=== PATIENT | female | born 1955 | race Caucasian/White ===

== ENCOUNTER 2024-06-27 16:14 | Emergency (ER) | payer MEDICARE ==
[2024-06-27 18:48] LABS: Bilirubin Neg (Negative); Blood, Urine Negative (Negative); Clarity Clear (Clear); Glucose, Urine (Dipstick) Normal (Negative); Ketone, Urine Negative (Negative); Leukocyte 25 (Negative); Nitrite Negative (Negative); Protein, Urine (Dipstick) 15 mg/dl (Neg-Trace); Specific Gravity, Urine 1.015 (1.005-1.030)
[2024-06-27 18:55] LABS: Amphetamine Not Detected (NotDetected); Barbiturates Screen Not Detected (NotDetected); Benzodiazepine Screen Detected (NotDetected); Cocaine Metabolite Screen Not Detected (NotDetected); Methadone Not Detected (NotDetected); Methamphetamine Not Detected (NotDetected); Opiate Screen Not Detected (NotDetected); Oxycodone Screen Not Detected (NotDetected); Phencyclidine (PCP) Not Detected (NotDetected); THC/Cannabinoid Screen Not Detected (NotDetected); Tricyclic Screen Not Detected (NotDetected)
[2024-06-27 18:57] LABS: Bacteria/HPF None Seen HPF (None Seen); CAUTI Indications for Culture Alt mental st,lethar; Mucous/LPF 1+ LPF (<2+); RBC/HPF 0-3 HPF (0-3); WBC/HPF 0-3 HPF (0-3)
[2024-06-27 18:58] LABS: Urine Culture Reflex No No
[2024-06-27 19:08] LABS: Hematocrit 34.8 % (34.9-44.5); Hemoglobin 11.6 g/dL (12.0-15.5); Mean Corpuscular HGB CONC 33.3 g/dL (32.0-36.0); Mean Corpuscular Hemoglobin 33.8 pg (27.0-33.0); Mean Corpuscular Volume 101.5 fL (81.6-98.3); Platelet Count 204 10x3/uL (150-450); RBC Distribution Width 15.4 % (11.5-14.5); Red Blood Cell (RBC) Count 3.43 10x6/uL (3.90-5.03); White Blood Cell (WBC) Count 6.6 10x3/uL (3.5-10.5)
[2024-06-27 19:27] LABS: ALT (SGPT) 16 U/L (8-55); AST (SGOT) 17 U/L (5-34); Albumin 4.5 g/dL (3.4-4.8); Alkaline Phosphatase 66 U/L (40-110); Anion Gap 17 mmol/L (10-20); BUN (Urea Nitrogen) 12 mg/dL (9.8-20.1); Bilirubin, Total 1.3 mg/dL (0.2-1.2); CK (CPK) 23 U/L (29-168); Calc. Creatinine Clearance 0 mL/min (70-130); Calcium 9.6 mg/dL (7.8-10.44); Carbon Dioxide 23 mmol/L (23-31); Chloride 106 mmol/L (98-107); Estimated GFR 61; Globulin 2.7 g/dL (2.4-3.5); Glucose 115 mg/dL (80-115); Potassium 4.1 mmol/L (3.5-5.1); Protein, Total 7.2 g/dL (5.8-8.1); Sodium 142 mmol/L (136-145)
[2024-06-27 19:31] LABS: Troponin I 0.016 ng/mL (< 0.028)
[2024-06-27 19:46] LABS: Acetaminophen Less than 10 mcg/mL (Less than 10); Alcohol Less than 10.0 mg/dL (Less than 10); Lipase 64 U/L (8-78); Salicylate Less than 8.0 mg/dL (Less than 8.0)
[2024-06-27 20:15] LABS: MDiff Complete? YES
[2024-06-27 20:17] LABS: Eosinophils 2 % (0-10); Lymphocytes 36 % (21-51); Monocytes 4 % (0-10); Neutrophil 56 % (42-75)
[2024-06-27 20:18] LABS: Large Platelets SLIGHT (None Seen); Ovalocytes SLIGHT = 2-5 cells (100X) (0-1/hpf); Schistocytes SLIGHT = 2-5 cells (100X) (0-1/hpf)
[2024-06-27 20:19] LABS: Macrocytosis SLIGHT = 6-15 cells (100X) (0-5/hpf)
[2024-06-27 20:20] LABS: Platelet Adequacy Comment Appears Adequate
== END 2024-06-27 20:34 | disposition home or self-care (01) ==
LOC: CSHERS 16:14
DX: R41.0 Disorientation, unspecified (principal)
CPT/HCPCS: 70450; 71045; 80053; 80306; 80307; 81001; 82140; 82550; 83690; 84443; 84484; 85025

== ENCOUNTER 2024-07-13 13:28 | Emergency (ER) | payer MEDICARE ==
[2024-07-13 14:18] LABS: Analyzer IN Cardio CS ER; Calcium, Ionized (venous) 1.12 mmol/L (1.16-1.32); Chloride (VBG) 103 mmol/L (98-106); Hematocrit-VBG 32 % (36.0-47.0); Potassium (VBG) 3.57 mmol/L (3.70-5.30); Puncture Site Other Site; RapidComm Collect By LAB; Sodium 141 mmol/L (133-146)
[2024-07-13 14:32] LABS: #Basophils 0.07 10x3/uL (0.0-0.2); #Eosinophils 0.09 10x3/uL (0.0-0.5); #Monocytes 0.23 10x3/uL (0.0-1.1); #Neutrophils 2.13 10x3/uL (1.5-8.4); %Basophils 1.5 % (0.0-2.0); %Lymphocytes 44.7 % (18.0-47.0); %Neutrophils 46.8 % (40.0-75.0); Hematocrit 30.8 % (34.9-44.5); Hemoglobin 9.7 g/dL (12.0-15.5); Mean Corpuscular HGB CONC 31.5 g/dL (32.0-36.0); Mean Corpuscular Hemoglobin 33.6 pg (27.0-33.0); Mean Corpuscular Volume 106.6 fL (81.6-98.3); Mean Platelet Volume 13.4 fL (7.4-10.4); Platelet Count 191 10x3/uL (150-450); RBC Distribution Width 14.9 % (11.5-14.5); Red Blood Cell (RBC) Count 2.89 10x6/uL (3.90-5.03); White Blood Cell (WBC) Count 4.6 10x3/uL (3.5-10.5)
[2024-07-13 14:47] LABS: ALT (SGPT) 13 U/L (8-55); AST (SGOT) 15 U/L (5-34); Albumin 3.3 g/dL (3.4-4.8); Alkaline Phosphatase 66 U/L (40-110); Anion Gap 13 mmol/L (10-20); BUN (Urea Nitrogen) 9 mg/dL (9.8-20.1); Bilirubin, Total 0.5 mg/dL (0.2-1.2); Calc. Creatinine Clearance 0 mL/min (70-130); Calcium 8.7 mg/dL (7.8-10.44); Carbon Dioxide 23 mmol/L (23-31); Chloride 106 mmol/L (98-107); Estimated GFR 73; Globulin 2.2 g/dL (2.4-3.5); Glucose 177 mg/dL (80-115); Magnesium 1.9 mg/dL (1.6-2.6); Potassium 3.8 mmol/L (3.5-5.1); Protein, Total 5.5 g/dL (5.8-8.1); Sodium 138 mmol/L (136-145)
[2024-07-13 14:50] LABS: Troponin I 0.023 ng/mL (< 0.028)
[2024-07-13 15:25] LABS: Large Platelets SLIGHT (None Seen)
[2024-07-13 15:26] LABS: Platelet Adequacy Comment Appears Adequate; RBC Morph Comment Within Normal Limits
[2024-07-13 15:54] LABS: Bilirubin Neg (Negative); Blood, Urine Negative (Negative); Clarity Clear (Clear); Glucose, Urine (Dipstick) 250 mg/dL (Negative); Ketone, Urine Negative (Negative); Leukocyte Negative (Negative); Nitrite Negative (Negative); Protein, Urine (Dipstick) Negative (Neg-Trace)
[2024-07-13 16:02] LABS: Bacteria/HPF 1+ HPF (None Seen); CAUTI Indications for Culture Alt mental st,lethar; Mucous/LPF 2+ LPF (<2+); RBC/HPF 0-3 HPF (0-3); Squamous Epithelial 0-3 HPF (0-3); WBC/HPF 0-3 HPF (0-3)
[2024-07-13 16:03] LABS: Urine Culture Reflex No No
[2024-07-13] MEDS ORDERED: Acetaminophen 325 MG TAB ONE (20:05)
== END 2024-07-13 21:29 | disposition short-term general hospital (02) ==
LOC: CSHERS 13:28
DX: R55 Syncope and collapse (principal); D64.9 Anemia, unspecified; E86.0 Dehydration; Z55.0 Illiteracy and low-level literacy
CPT/HCPCS: 71045; 80053; 81001; 82805; 83605; 83735; 84484; 85025; 93005; 96360

== ENCOUNTER 2024-10-21 13:59 | Emergency (ER) | payer MEDICARE ==
[2024-10-21 15:00] LABS: Platelet Count 153 10x3/uL (150-450)
[2024-10-21 15:01] LABS: #Eosinophils 0.13 10x3/uL (0.0-0.5); #Neutrophils 1.62 10x3/uL (1.5-8.4); %Basophils 2.8 % (0.0-2.0); %Eosinophils 3.7 % (0.0-6.0); %Lymphocytes 42.3 % (18.0-47.0); %Monocytes 5.6 % (0.0-10.0); %Neutrophils 45.6 % (40.0-75.0); Hematocrit 31.3 % (34.9-44.5); Hemoglobin 10.1 g/dL (12.0-15.5); Mean Corpuscular HGB CONC 32.3 g/dL (32.0-36.0); Mean Corpuscular Hemoglobin 33.2 pg (27.0-33.0); RBC Distribution Width 14.5 % (11.5-14.5); Red Blood Cell (RBC) Count 3.04 10x6/uL (3.90-5.03); White Blood Cell (WBC) Count 3.55 10x3/uL (3.5-10.5)
[2024-10-21 15:17] LABS: ALT (SGPT) 9 U/L (Less than 34); AST (SGOT) 17 U/L (11-34); Albumin 3.4 g/dL (3.1-4.5); Alkaline Phosphatase 62 U/L (40-110); Anion Gap 12 mmol/L (10-20); BUN (Urea Nitrogen) 10 mg/dL (9.8-20.1); Bilirubin, Total 0.4 mg/dL (0.3-1.2); Calc. Creatinine Clearance 0 mL/min (70-130); Calcium 8.4 mg/dL (7.8-10.44); Carbon Dioxide 22 mmol/L (23-31); Chloride 110 mmol/L (98-107); Estimated GFR 78; Globulin 2.6 g/dL (2.4-3.5); Glucose 166 mg/dL (80-115); Potassium 3.8 mmol/L (3.5-5.1); Sodium 140 mmol/L (136-145)
[2024-10-21 17:31] LABS: Bilirubin Neg (Negative); Blood, Urine Negative (Negative); Clarity Clear (Clear); Glucose, Urine (Dipstick) Normal (Negative); Ketone, Urine Negative (Negative); Leukocyte Negative (Negative); Nitrite Negative (Negative); Protein, Urine (Dipstick) 15 mg/dl (Neg-Trace); Specific Gravity, Urine 1.005 (1.005-1.030); Urobilinogen Normal mg/dL (Less than 2); pH, Urine 6.5 (5.0-9.0)
[2024-10-21 18:07] LABS: Bacteria/HPF None Seen HPF (None Seen); CAUTI Indications for Culture Alt mental st,lethar; RBC/HPF None Seen HPF (0-3); Squamous Epithelial 0-3 HPF (0-3); Urine Culture Reflex No No; WBC/HPF None Seen HPF (0-3)
== END 2024-10-21 18:44 | disposition home or self-care (01) ==
LOC: CSHERS 13:59
DX: R53.1 Weakness (principal)
CPT/HCPCS: 36415; 36416; 80053; 81001; 85025; 87428; 93005

== ENCOUNTER 2025-05-07 15:23 | Emergency (ER) | payer OTHER ==
[~2025-05-07 15:23] MED LIST: Iopamidol 300 61% 100 ML VIAL FS ONE
[2025-05-07 17:00] LABS: #Basophils 0.08 10x3/uL (0.0-0.2); #Eosinophils 0.04 10x3/uL (0.0-0.5); #Monocytes 0.19 10x3/uL (0.0-1.1); #Neutrophils 2.82 10x3/uL (1.5-8.4); %Basophils 1.9 % (0.0-2.0); %Eosinophils 0.9 % (0.0-6.0); %Lymphocytes 26.5 % (18.0-47.0); %Monocytes 4.4 % (0.0-10.0); %Neutrophils 65.6 % (40.0-75.0); Hematocrit 33.2 % (34.9-44.5); Hemoglobin 11.0 g/dL (12.0-15.5); Mean Corpuscular Hemoglobin 32.4 pg (27.0-33.0); Mean Corpuscular Volume 97.9 fL (81.6-98.3); Platelet Count 187 10x3/uL (150-450); Red Blood Cell (RBC) Count 3.39 10x6/uL (3.90-5.03); White Blood Cell (WBC) Count 4.30 10x3/uL (3.5-10.5)
[2025-05-07 17:09] LABS: ALT (SGPT) 9 U/L (Less than 34); AST (SGOT) 20 U/L (11-34); Albumin 3.2 g/dL (3.1-4.5); Alkaline Phosphatase 102 U/L (40-110); Anion Gap 16 mmol/L (10-20); BUN (Urea Nitrogen) 9 mg/dL (9.8-20.1); Bilirubin, Total 0.5 mg/dL (0.3-1.2); Calc. Creatinine Clearance 0 mL/min (70-130); Calcium 8.4 mg/dL (7.8-10.44); Carbon Dioxide 24 mmol/L (23-31); Chloride 103 mmol/L (98-107); Globulin 3.2 g/dL (2.4-3.5); Glucose 134 mg/dL (83-110); Lipase 21 U/L (8-78); Magnesium 1.8 mg/dL (1.6-2.6); Potassium 3.6 mmol/L (3.5-5.1); Sodium 139 mmol/L (136-145)
[2025-05-07 17:12] LABS: Glucose, Urine (Dipstick) Normal (Negative); Leukocyte Negative (Negative); Protein, Urine (Dipstick) 15 mg/dl (Neg-Trace); Specific Gravity, Urine 1.015 (1.005-1.030)
[2025-05-07 17:27] LABS: Bacteria/HPF 2+ HPF (None Seen); CAUTI Indications for Culture Pelvic or flank pain; RBC/HPF 0-3 HPF (0-3); WBC/HPF 0-3 HPF (0-3)
[2025-05-07 17:28] LABS: Mucous/LPF 2+ LPF (<2+)
[2025-05-07 17:30] LABS: Urine Culture Reflex No No
== END 2025-05-07 19:56 | disposition home or self-care (01) ==
LOC: CSHERS 15:23
DX: K80.20 Calculus of gallbladder without cholecystitis without obstruction (principal); R11.2 Nausea with vomiting, unspecified; I48.91 Unspecified atrial fibrillation
CPT/HCPCS: 74177; 80053; 81001; 83690; 83735; 85025; Q9967; 96360; 96361; Q0164

== ENCOUNTER 2025-05-10 09:24 | Outpatient (CLI) | payer OTHER | END 2025-05-10 09:25 | disposition home or self-care (01) | LOC: CSHLAB 09:24 | PROVIDERS: ATTEND Surgery | DX: Z01.818 Encounter for other preprocedural examination (principal); K80.20 Calculus of gallbladder without cholecystitis without obstruction | CPT/HCPCS: 93005; 93010 ==

== ENCOUNTER 2025-05-27 10:13 | Outpatient (CLI) | payer OTHER | END 2025-05-27 10:14 | disposition home or self-care (01) | LOC: CSHRAD 10:13 | PROVIDERS: ATTEND Physician Assistant | DX: R13.19 Other dysphagia (principal); K44.9 Diaphragmatic hernia without obstruction or gangrene; K21.9 Gastro-esophageal reflux disease without esophagitis; K22.4 Dyskinesia of esophagus | CPT/HCPCS: 74220 ==

== ENCOUNTER 2025-06-10 19:10 | Inpatient (IN) | payer OTHER ==
[~2025-06-10 19:10] MED LIST changes: -Iopamidol 300 61% 100 ML VIAL FS ONE; +Iopamidol 370 76% 100 ML VIAL ONE
[2025-06-10] MEDS ORDERED: Droperidol 5 MG/2 ML VIAL ONE (20:04)
[2025-06-10 20:39] LABS: #Basophils 0.03 10x3/uL (0.0-0.2); #Eosinophils Less than 0.03 10x3/uL (0.0-0.5); #Monocytes 0.20 10x3/uL (0.0-1.1); #Neutrophils 3.89 10x3/uL (1.5-8.4); %Basophils 0.6 % (0.0-2.0); %Eosinophils 0.2 % (0.0-6.0); %Lymphocytes 14.5 % (18.0-47.0); %Monocytes 4.1 % (0.0-10.0); %Neutrophils 79.8 % (40.0-75.0); Hematocrit 31.3 % (34.9-44.5); Hemoglobin 10.1 g/dL (12.0-15.5); Mean Corpuscular Hemoglobin 32.9 pg (27.0-33.0); Mean Corpuscular Volume 102.0 fL (81.6-98.3); Platelet Count 158 10x3/uL (150-450); Red Blood Cell (RBC) Count 3.07 10x6/uL (3.90-5.03); White Blood Cell (WBC) Count 4.88 10x3/uL (3.5-10.5)
[2025-06-10 20:45] LABS: Glucose, Urine (Dipstick) Normal (Negative); Leukocyte Negative (Negative); Protein, Urine (Dipstick) 15 mg/dl (Neg-Trace); Specific Gravity, Urine 1.010 (1.005-1.030)
[2025-06-10 20:55] LABS: ALT (SGPT) 22 U/L (Less than 34); AST (SGOT) 30 U/L (11-34); Albumin 3.1 g/dL (3.1-4.5); Alkaline Phosphatase 98 U/L (40-110); Anion Gap 17 mmol/L (10-20); BUN (Urea Nitrogen) 14 mg/dL (9.8-20.1); Bilirubin, Total 0.8 mg/dL (0.3-1.2); Calc. Creatinine Clearance 0 mL/min (70-130); Calcium 8.3 mg/dL (7.8-10.44); Carbon Dioxide 20 mmol/L (23-31); Chloride 108 mmol/L (98-107); Globulin 3.0 g/dL (2.4-3.5); Glucose 166 mg/dL (83-110); Lipase 17 U/L (8-78); Magnesium 1.9 mg/dL (1.6-2.6); Potassium 4.3 mmol/L (3.5-5.1); Sodium 141 mmol/L (136-145)
[2025-06-10 20:56] LABS: Bacteria/HPF Rare-Few HPF (None Seen); CAUTI Indications for Culture Alt mental st,lethar; RBC/HPF None Seen HPF (0-3); WBC/HPF None Seen HPF (0-3)
[2025-06-10 20:57] LABS: Troponin I 0.031 ng/mL (< 0.028)
[2025-06-10 20:57] LABS: Urine Culture Reflex No No
[2025-06-10] MEDS ORDERED: Acetaminophen 325 MG TAB PO PRN (23:28)
[2025-06-10] MEDS ORDERED: Promethazine HCl 12.5 MG, Admixture Fee 1 EACH in Sodium Chloride 0.9% 50 ML IVPB PRN (23:40)
[2025-06-10] MEDS ORDERED: Glucagon 1 MG/ML KIT IM PRN (23:58)
[2025-06-10] MEDS ORDERED: Dextrose 50% Abboject 50 ML SYRINGE SLOW IVP PRN (23:58)
[2025-06-11 00:36] LABS: Actual Bicarbonate (HCO3v) 22.6 mEq/L (22-28); Analyzer IN Cardio CS ER; Base Excess -1.6 mEq/L (-2 - +2); Calcium, Ionized (venous) 1.07 mmol/L (1.16-1.32); Chloride (VBG) 104 mmol/L (98-106); Hematocrit-VBG 29 % (36.0-47.0); Hemoglobin (Hb) 9.9 g/dL (11.7-16.1); Potassium (VBG) 4.43 mmol/L (3.70-5.30); Puncture Site Other Site; RapidComm Collect By Lab; Sodium 133 mmol/L (133-146)
[2025-06-11] MEDS: cefTRIAXone\\ROCEPHIN 1 GM in Sodium Chloride 0.9% 100 ML IVPB SCH ×2 (01:50→03:27)
[2025-06-11] MEDS ORDERED: FLU (Fluad Triv) 25-26 (65UP)PF 45 MCG/0.5 ML Syringe IM ONE (02:30)
[2025-06-11] MEDS ORDERED: PNEUMOC 20-VAL CONJ-DIP CRM/PF 0.5 ML SYRINGE IM ONE (02:30)
[2025-06-11 03:39] LABS: #Basophils 0.05 10x3/uL (0.0-0.2); #Eosinophils 0.11 10x3/uL (0.0-0.5); #Monocytes 0.35 10x3/uL (0.0-1.1); #Neutrophils 2.58 10x3/uL (1.5-8.4); %Basophils 1.0 % (0.0-2.0); %Eosinophils 2.2 % (0.0-6.0); %Lymphocytes 37.3 % (18.0-47.0); %Monocytes 7.0 % (0.0-10.0); %Neutrophils 51.9 % (40.0-75.0); Hematocrit 27.0 % (34.9-44.5); Hemoglobin 8.6 g/dL (12.0-15.5); Mean Corpuscular Hemoglobin 32.8 pg (27.0-33.0); Mean Corpuscular Volume 103.1 fL (81.6-98.3); Platelet Count 146 10x3/uL (150-450); Red Blood Cell (RBC) Count 2.62 10x6/uL (3.90-5.03); White Blood Cell (WBC) Count 4.98 10x3/uL (3.5-10.5)
[2025-06-11 03:56] LABS: ALT (SGPT) 16 U/L (Less than 34); AST (SGOT) 26 U/L (11-34); Albumin 2.5 g/dL (3.1-4.5); Alkaline Phosphatase 72 U/L (40-110); Anion Gap 9 mmol/L (10-20); BUN (Urea Nitrogen) 11 mg/dL (9.8-20.1); Bilirubin, Total 0.4 mg/dL (0.3-1.2); Calc. Creatinine Clearance 0 mL/min (70-130); Calcium 7.8 mg/dL (7.8-10.44); Carbon Dioxide 26 mmol/L (23-31); Chloride 108 mmol/L (98-107); Globulin 2.3 g/dL (2.4-3.5); Glucose 105 mg/dL (83-110); Potassium 4.2 mmol/L (3.5-5.1); Sodium 139 mmol/L (136-145)
[2025-06-11 04:03] LABS: Troponin I 0.053 ng/mL (< 0.028)
[2025-06-11] MEDS ORDERED: Folic Acid 1 MG TAB PO SCH (09:00)
[2025-06-11] MEDS ORDERED: Famotidine 20 MG TAB PO SCH (09:00)
[2025-06-11] MEDS ORDERED: Famotidine/PF 20 mg/2ml Vial SLOW IVP SCH (09:00)
[2025-06-11] MEDS ORDERED: Megestrol Acetate 400 MG/10 ML UDCUP PO SCH (09:00)
[2025-06-11] MEDS ORDERED: Fleet Saline Enema 133 ML BOT PR SCH (09:00)
[2025-06-11] MEDS ORDERED: Non-Formulary Medication 1 EACH (Esomeprazole Magnesium [Nexium] 20 MG Capsule.Dr) PO SCH (09:00)
[2025-06-11] MEDS: Pantoprazole 40 MG VIAL IVP SCH (09:28)
[2025-06-11 12:58] VITALS: BP 135/76; TEMP 97.9
[2025-06-12] MEDS ORDERED: cefTRIAXone\\ROCEPHIN 2 GM in Sodium Chloride 0.9% 100 ML IVPB SCH (02:00)
== END 2025-06-11 14:45 | disposition home or self-care (01) | DRG 391 ==
LOC: CSHERS 19:10 → CSHTELE 23:28
PROVIDERS: ADMIT Internal Medicine; ATTEND Family Medicine
PROC: 3E03329 Introduction of Other Anti-infective into Peripheral Vein, Percutaneous Approach (ICD-10-PCS; principal; 2025-06-11)
PROC: 3E0234Z Introduction of Serum, Toxoid and Vaccine into Muscle, Percutaneous Approach (ICD-10-PCS; 2025-06-11)
PROC: 3E02340 Introduction of Influenza Vaccine into Muscle, Percutaneous Approach (ICD-10-PCS; 2025-06-11)
DX: K59.00 Constipation, unspecified (principal); I21.4 Non-ST elevation (NSTEMI) myocardial infarction; E87.20 Acidosis, unspecified; F03.94 Unspecified dementia, unspecified severity, with anxiety; R10.9 Unspecified abdominal pain; K21.9 Gastro-esophageal reflux disease without esophagitis; Z96.651 Presence of right artificial knee joint; R62.7 Adult failure to thrive; Z96.652 Presence of left artificial knee joint; D64.9 Anemia, unspecified; Z23 Encounter for immunization; R73.9 Hyperglycemia, unspecified; Z98.84 Bariatric surgery status; Z98.890 Other specified postprocedural states; Z90.49 Acquired absence of other specified parts of digestive tract; Z88.8 Allergy status to other drugs, medicaments and biological substances; Z88.5 Allergy status to narcotic agent; Z88.2 Allergy status to sulfonamides; Z88.0 Allergy status to penicillin; Z91.030 Bee allergy status; Z79.899 Other long term (current) drug therapy; I48.91 Unspecified atrial fibrillation; E86.0 Dehydration; R41.82 Altered mental status, unspecified; R55 Syncope and collapse
CPT/HCPCS: 36415; 36416; 70450; 71045; 74177; 80053; 81001; 82010; 82805; 83605; 83690; 83735; 83880; 84145; 84484; 85025; 87040; 93005; 93306; 96361; 96374; J0696; J1790; J2470; J7120; Q9967

== ENCOUNTER 2025-07-04 14:17 | Emergency (ER) | payer OTHER ==
[2025-07-04 14:59] LABS: #Basophils 0.08 10x3/uL (0.0-0.2); #Eosinophils 0.15 10x3/uL (0.0-0.5); #Monocytes 0.44 10x3/uL (0.0-1.1); #Neutrophils 2.46 10x3/uL (1.5-8.4); %Basophils 1.4 % (0.0-2.0); %Eosinophils 2.6 % (0.0-6.0); %Lymphocytes 45.0 % (18.0-47.0); %Monocytes 7.7 % (0.0-10.0); %Neutrophils 43.1 % (40.0-75.0); Hematocrit 31.6 % (34.9-44.5); Hemoglobin 10.2 g/dL (12.0-15.5); Mean Corpuscular Hemoglobin 32.8 pg (27.0-33.0); Mean Corpuscular Volume 101.6 fL (81.6-98.3); Platelet Count 195 10x3/uL (150-450); Red Blood Cell (RBC) Count 3.11 10x6/uL (3.90-5.03); White Blood Cell (WBC) Count 5.71 10x3/uL (3.5-10.5)
[2025-07-04 15:16] LABS: ALT (SGPT) 19 U/L (Less than 34); AST (SGOT) 22 U/L (11-34); Albumin 3.3 g/dL (3.1-4.5); Alkaline Phosphatase 67 U/L (40-110); Anion Gap 10 mmol/L (10-20); BUN (Urea Nitrogen) 16 mg/dL (9.8-20.1); Bilirubin, Total 0.3 mg/dL (0.3-1.2); Calc. Creatinine Clearance 0 mL/min (70-130); Calcium 8.4 mg/dL (7.8-10.44); Carbon Dioxide 23 mmol/L (23-31); Chloride 109 mmol/L (98-107); Globulin 2.4 g/dL (2.4-3.5); Glucose 93 mg/dL (83-110); Potassium 4.5 mmol/L (3.5-5.1); Sodium 137 mmol/L (136-145)
[2025-07-04 15:23] LABS: Troponin I 0.016 ng/mL (< 0.028)
[2025-07-04 18:01] LABS: Glucose, Urine (Dipstick) Normal (Negative); Leukocyte Negative (Negative); Protein, Urine (Dipstick) 15 mg/dl (Neg-Trace); Specific Gravity, Urine 1.010 (1.005-1.030)
[2025-07-04 18:49] LABS: Bacteria/HPF Rare-Few HPF (None Seen); CAUTI Indications for Culture Alt mental st,lethar; RBC/HPF 0-3 HPF (0-3); WBC/HPF 0-3 HPF (0-3)
[2025-07-04 18:51] LABS: Urine Culture Reflex No No
== END 2025-07-04 19:20 | disposition home or self-care (01) ==
LOC: CSHERS 14:17
DX: R69 Illness, unspecified (principal); I48.91 Unspecified atrial fibrillation
CPT/HCPCS: 70450; 71045; 80053; 81001; 83605; 84484; 85025; 87428; 93005